=== PATIENT | female | born 1980 | race Caucasian/White ===

== ENCOUNTER 2018-07-09 05:40 | Inpatient (IN) | payer MEDICAID ==
[2018-07-09] MEDS ORDERED: OXYTOCIN 30 UNITS/LR 500 ML IV ×3 (07:00→17:00)
[2018-07-09] MEDS ORDERED: BUTORPHANOL 2 MG INJ IV (07:00)
[2018-07-09] MEDS ORDERED: METHYLERGONOVINE 0.2 MG INJ IM ×2 (07:00→17:00)
[2018-07-09] MEDS ORDERED: LIDOCAINE 1% (MPF) 30 ML INJ INJ (07:00)
[2018-07-09] MEDS ORDERED: MISOPROSTOL 200 MCG TAB PR ×2 (07:00→17:00)
[2018-07-09] MEDS ORDERED: CARBOPROST 250 MCG INJ IM ×2 (07:00→17:00)
[2018-07-09] MEDS ORDERED: IBUPROFEN 600 MG TAB PO (07:00)
[2018-07-09] MEDS: LACTATED RINGER'S 1,000 ML IV ×3 (08:03→14:25)
[2018-07-09] MEDS: AMPICILLIN 2 GM/NS (PMX) 100 ML IV (08:55)
[2018-07-09 08:58] LABS: ADD MAN DIFF? NO
[2018-07-09] MEDS: OXYTOCIN 30 UNITS/LR 500 ML IV ×2 (09:01→14:51)
[2018-07-09 09:07] LABS: BASOPHILS % 0.2 % (0.0-2.0); EOSINOPHILS # 0.1 10^3/ul (0.0-0.5); EOSINOPHILS % 1.3 % (0.0-7.0); HEMOGLOBIN 13.8 g/dl (12.0-16.0); LYMPHOCYTES # 1.8 10^3/ul (0.8-2.9); LYMPHOCYTES % 19.3 % (15.0-51.0); MEAN CORPUSCULAR HEMOGLOBIN 32.2 pg (29.0-33.0); MEAN CORPUSCULAR HGB CONC 35.4 g/dl (32.0-37.0); MEAN CORPUSCULAR VOLUME 90.9 fl (82.0-101.0); MEAN PLATELET VOLUME 10.6 fl (7.4-10.4); MONOCYTE # 0.6 10^3/ul (0.3-0.9); MONOCYTES % 6.3 % (0.0-11.0); NEUTROPHIL # 6.6 10^3/ul (1.6-7.5); NEUTROPHILS % 72.5 % (39.0-77.0); PLATELET COUNT 251 10^3/UL (140-415); RED BLOOD COUNT 4.29 10^6/ul (4.20-5.40)
[2018-07-09 09:07] LABS: WHITE BLOOD COUNT 9.1 10^3/ul (4.8-10.8)
[2018-07-09 09:33] LABS: INR 0.86; PROTIME 11.8 Sec (11.9-14.9); PT RATIO 0.9
[2018-07-09 09:57] LABS: HEPATITIS B SURFACE ANTIGEN NEGATIVE (NEGATIVE)
[2018-07-09] MEDS ORDERED: FENTAnyl 2MCG/ML-ROPIV 0.2% 100 ML (10:43)
[2018-07-09] MEDS ORDERED: AMPICILLIN 1 GM/NS (PMX) 50 ML IV (11:00)
[2018-07-09] MEDS ORDERED: ONDANSETRON 4 MG INJ (11:12)
[2018-07-09] MEDS: ONDANSETRON 4 MG INJ IV (11:21)
[2018-07-09] MEDS ORDERED: NALOXONE (0.4 MG/ML) INJ IV (11:30)
[2018-07-09] MEDS ORDERED: FENTAnyl 2MCG/ML-ROPIV 0.2% 100 ML BAG EPI (11:30)
[2018-07-09] MEDS ORDERED: DIPHENHYDRAMINE 50 MG INJ IV (11:30)
[2018-07-09] MEDS ORDERED: MINERAL OIL LIGHT 10 ML VIAL (13:26)
[2018-07-09] MEDS ORDERED: DIPHENHYDRAMINE 25 MG CAP PO (17:00)
[2018-07-09] MEDS ORDERED: HYDROCODONE/APAP (5/325) TAB PO (17:00)
[2018-07-09] MEDS ORDERED: ZOLPIDEM 5 MG TAB PO (17:00)
[2018-07-09] MEDS ORDERED: ACETAMINOPHEN 325 MG TAB PO (17:00)
[2018-07-09] MEDS ORDERED: MAGNESIUM HYDROXIDE 30ML CUP PO (17:00)
[2018-07-09 17:12] LABS: RAPID PLASMA REAGIN NONREACTIVE (NR)
[2018-07-09] MEDS: IBUPROFEN 800 MG TAB PO ×2 (18:00→23:53)
[2018-07-09] MEDS: BENZOCAINE 20% 56 ML SPRAY TOP (18:03)
[2018-07-09] MEDS: LANOLIN HPA 1 PKT TOP (18:03)
[2018-07-09] MEDS: WITCH HAZEL/GLYCERIN PAD PR (18:03)
[2018-07-09] MEDS: LACTATED RINGER'S 1,000 ML IV* (18:45)
[2018-07-09] MEDS: SENNA/DOCUSATE NA (8.6MG/50MG) TAB PO (21:29)
[2018-07-10] MEDS: LACTATED RINGER'S 1,000 ML IV* (00:46)
[2018-07-10] MEDS: OXYTOCIN 30 UNITS/LR 500 ML IV (01:31)
[2018-07-10] MEDS: IBUPROFEN 800 MG TAB PO ×4 (05:37→23:58)
[2018-07-10] MEDS: SENNA/DOCUSATE NA (8.6MG/50MG) TAB PO ×2 (08:40→21:40)
[2018-07-10 09:38] LABS: ADD MAN DIFF? NO
[2018-07-10 09:40] LABS: WHITE BLOOD COUNT 9.3 10^3/ul (4.8-10.8)
[2018-07-10 09:40] LABS: BASOPHILS % 0.1 % (0.0-2.0); EOSINOPHILS # 0.1 10^3/ul (0.0-0.5); EOSINOPHILS % 1.1 % (0.0-7.0); HEMATOCRIT 33.7 % (37.0-47.0); HEMOGLOBIN 11.6 g/dl (12.0-16.0); LYMPHOCYTES # 1.8 10^3/ul (0.8-2.9); LYMPHOCYTES % 19.6 % (15.0-51.0); MEAN CORPUSCULAR HEMOGLOBIN 31.6 pg (29.0-33.0); MEAN CORPUSCULAR HGB CONC 34.4 g/dl (32.0-37.0); MEAN CORPUSCULAR VOLUME 91.8 fl (82.0-101.0); MONOCYTE # 0.8 10^3/ul (0.3-0.9); MONOCYTES % 8.2 % (0.0-11.0); NEUTROPHIL # 6.6 10^3/ul (1.6-7.5); NEUTROPHILS % 70.7 % (39.0-77.0); PLATELET COUNT 211 10^3/UL (140-415); RED BLOOD COUNT 3.67 10^6/ul (4.20-5.40)
[2018-07-10] MEDS: INFLUENZA VIRUS VACCINE 0.5 ML (DISPENSING) IM* (11:50)
[2018-07-11] MEDS: IBUPROFEN 800 MG TAB PO ×2 (05:54→12:31)
[2018-07-11] MEDS: SENNA/DOCUSATE NA (8.6MG/50MG) TAB PO (08:58)
[2018-07-11] MEDS: MEASLES,MUMPS,RUBELLA VACCINE INJ SC* (09:00)
[2018-07-11] MEDS: VARICELLA VACCINE LIVE/PF 1,350 UNIT/0.5 ML ML SC* (09:00)
[2018-07-11] MEDS: DIPHTH/TET/ACEL PERTUSS (ADULT) 0.5 ML VIAL IM* (12:32)
== END 2018-07-11 14:55 | disposition home or self-care (01) | DRG 807 ==
LOC: OBT 05:40 → L-D 05:40 → OBT 06:13 → L-D 06:13 → PP1 16:25
PROVIDERS: Obstetrics & Gynecology
PROC: 10E0XZZ Delivery of Products of Conception, External Approach (ICD-10-PCS; principal; 2018-07-09)
PROC: 3E033VJ Introduction of Other Hormone into Peripheral Vein, Percutaneous Approach (ICD-10-PCS; 2018-07-09)
DX: O60.14X0 Preterm labor third trimester with preterm delivery third trimester, not applicable or unspecified (principal); Z37.0 Single live birth; Z3A.35 35 weeks gestation of pregnancy
CPT/HCPCS: 62319; 76815; 85025; 85610; 85730; 86592; 86850; 86900; 86901; 87340; 90686; 90715; 99464